=== PATIENT | female | born 1995 | race African-American/Black ===

== ENCOUNTER 2021-10-04 02:45 | Emergency (ER) | payer SELFPAY ==
[~2021-10-04] VITALS: Ht 165.1 cm; Wt 55.0 kg
[2021-10-04 02:51] VITALS: BP 112/76
== END 2021-10-04 10:54 | disposition home or self-care (01) ==
LOC: ER 02:45
DX: R10.9 Unspecified abdominal pain (principal); Z87.891 Personal history of nicotine dependence; Z00.00 Encounter for general adult medical examination without abnormal findings
CPT/HCPCS: 99283